=== PATIENT | female | born 1960 | race Hispanic/Latino ===

== ENCOUNTER 2018-03-15 10:21 | Emergency (ER) | payer OTHER ==
[2018-03-15 10:29] VITALS: RESP 18
--- NOTE | 2018-03-15 10:44 | C.PDOC ---
History Of Present Illness 57 yr old female w/ hx of HTN, Hysterectomy p/w R knee pain. Pt notes R knee pain started 1 week prior, throbbing, first time occurence. Pain occured after she was throwing away garbage while at work 1 week ago. She notes spraining her knee. She denies any popping sensation or tearing sensation. She has been able to ambulate without issue but has been having intermittent pain the R knee. No redness or pain to palpation on top of the knee. No fever, chills or night sweats. No blue tint to the foot. She notes taking excedrin this morning with mild relief for the pain. No fever, chills or night sweats No chest pain or sob No abdominal pain No other trauma No other complaints Time Seen by Provider: 03/15/18 10:43 Chief Complaint (Nursing): Lower Extremity Problem/Injury History Per: Patient Onset/Duration Of Symptoms: Other (1 week ago) Current Symptoms Are (Timing): Still Present - Knee Description Of Injury: Twisted Alleviating Factor(s): OTC Pain Medication Past Medical History Vital Signs: Last Vital Signs Temp 98.1 F 03/15/18 10:38 Pulse 94 H 03/15/18 10:38 Resp 18 03/15/18 10:38 BP 174/90 H 03/15/18 10:38 Pulse Ox 96 03/15/18 11:05 - Medical History PMH: HTN, Hypercholesterolemia, Hypothyroidism Denies: Chronic Kidney Disease Family History: States: Unknown Family Hx - Social History Hx Tobacco Use: No Hx Alcohol Use: No Hx Substance Use: No - Immunization History Hx Tetanus Toxoid Vaccination: No Hx Influenza Vaccination: Yes Hx Pneumococcal Vaccination: No Review Of Systems Except As Marked, All Systems Reviewed And Found Negative. Constitutional: Negative for: Fever Eyes: Negative for: Pain ENT: Negative for: Ear Pain Musculoskeletal: Positive for: Leg Pain (R knee) Physical Exam - Physical Exam Appears: Well, No Acute Distress Skin: Normal Color, Warm, Dry Eye(s): bilateral: Normal Inspection, PERRL, EOMI Nose: Normal Throat: Normal Neck: Normal Cardiovascular: Rhythm Regular Respiratory: Normal Breath Sounds Gastrointestinal/Abdominal: Normal Exam Back: Normal Inspection Extremity: Normal ROM Extremity: Right: Bony Point Tenderness, Bilateral: Atraumatic, Hips Non-Tender , No Pedal Edema, Normal Color And Temperature, Normal ROM, Other (b/l LE good pulses and N/V status) Pulses: Left Dorsalis Pedis: Normal, Right Dorsalis Pedis: Normal Neurological/Psych: Oriented x3, Normal Speech ED Course And Treatment O2 Sat by Pulse Oximetry: 96 Medical Decision Making Medical Decision Makin yr old female w/ hx of HTN, Hysterectomy p/w R knee pain s/p mechanical injury. Good n/v distal. No anterior / posterior drawer sign. No pain w/ valgus or varus manuevers. Ambulating well, Full ROM. Pending XR and pain control. 11:18 XRay IMPRESSION: Small suprapatellar joint effusion without demonstrated fracture or dislocation. 11:18 Pt noted to be ambulating well, n/v status remains intact, will have pt follow up w/ PMD and ortho. No indication of septic joint: No F/C/Ns. No Erythema or redness over joint. No hx of STDs/vaginal d/c or dysuria.. Disposition - Disposition Referrals: Олег Conrad III, MD [Staff Provider] - [facility] [Outside] (or see your primary care doctor) Disposition: HOME/ ROUTINE Disposition Time: 11:20 Condition: GOOD Additional Instructions: TRENT KUMAR, thank you for letting us take care of you today. Your provider was Tommie Dash and you were treated for RT LEG PAIN. The emergency medical care you received today was directed at your acute symptoms. If you were prescribed any medication, please fill it and take as directed. It may take several days for your symptoms to resolve. Return to the Emergency Department if your symptoms worsen, do not improve, or if you have any other problems. Please contact your doctor or call one of the physicians/clinics you have been referred to that are listed on the Patient Visit Information form that is included in your discharge packet. Bring any paperwork you were given at discharge with you along with any medications you are taking to your follow up visit. Our treatment cannot replace ongoing medical care by a primary care provider outside of the emergency department. Thank you for allowing the [employer] team to be part of your care today. If you had an X-Ray or CT scan: A Radiologist will review the ED reading if any change in treatment is needed we will contact you. If you had a blood, urine, or wound culture: It will take several days for the results, if any change in treatment is needed we will contact you. If you had an STI test: It will take 48 hours for the results. Please call after 1 week if you have not heard back. Forms: [employer] (Slovenian) - Clinical Impression Clinical Impression: Right knee sprain
--- NOTE | 2018-03-15 11:15 | RAD ---
Date of service: 03/15/2018 PROCEDURE: Right Knee Radiographs. HISTORY: R knee pain COMPARISON: None. FINDINGS: BONES: No acute fracture. JOINTS: Unremarkable. JOINT EFFUSION: Small suprapatellar joint effusion. OTHER FINDINGS: None. IMPRESSION: Small suprapatellar joint effusion without demonstrated fracture or dislocation.
[2018-03-15 11:30] VITALS: BP 131/71; PULSE 67; TEMP 98.8; O2SAT 100
== END 2018-03-15 11:30 | disposition home or self-care (01) ==
LOC: C.ER 10:21
DX: S83.91XA Sprain of unspecified site of right knee, initial encounter (principal); X58.XXXA Exposure to other specified factors, initial encounter; Y92.89 Other specified places as the place of occurrence of the external cause; Y99.0 Civilian activity done for income or pay

== ENCOUNTER 2018-08-04 06:14 | Outpatient (CLI) | payer BC | END 2018-08-04 06:15 | disposition home or self-care (01) | LOC: C.LAB 06:14 | DX: E11.9 Type 2 diabetes mellitus without complications (principal) ==